=== PATIENT | female | born 1995 | race Caucasian/White ===

== ENCOUNTER 2017-03-01 01:34 | Emergency (ER) | payer BC, MEDICAID ==
[2017-03-01 01:36] VITALS: BMI 73.1
--- NOTE | 2017-03-01 02:46 | ED PDOC ---
Arrival/HPI <Randy Doyle - Last Filed: 03/01/17 04:06> - General Historian: Patient - History of Present Illness Time/Duration: Prior to Arrival Symptom Onset: Sudden Symptom Course: Unchanged Quality: Unable to Describe Severity Level: Mild Context: Home <KellyRuth - Last Filed: 03/01/17 18:51> - General Chief Complaint: Substance Abuse Time Seen by Provider: 03/01/17 02:28 - History of Present Illness Narrative History of Present Illness (Text): 03/01/17 02:43 21F w/PMH sig for morbid obesity s/p gastric sleeve surgery evaluated for substance abuse. Pt BIBA due to ingestion of Rice Krispie treat with some unidentified substance in it. Pt unable to remember what was ingested. Pt states she called EMS due to "feeling like I was falling". EMS report states pt reported marijuana in the Rice Krispie treat. Pt admits to feeling cold, dry throat, paresthesias (chronic). Denies N/V/F/C, shortness of breath, chest pain , ab pain, headache, vision changes, audio or visual hallucinations, suicidal ideation. PMH: Hx morbid obesity PSH: Gastric sleeve All: Amie Pimentel SH: Denies tobacco use, occasional ETOH use, denies illicit drug use 03/01/17 02:59 03/01/17 03:06 (Ruth Mendoza) Associated Symptoms (Text): 03/01/17 02:47 feeling cold (Ruth Mendoza) Past Medical History - Provider Review Nursing Documentation Reviewed: Yes - Infectious Disease Hx of Infectious Diseases: None - Tetanus Immunization Tetanus Immunization: Up to Date - Cardiac Hx Hypertension: Yes - Pulmonary Hx Asthma: Yes - Neurological Hx Neurological Disorder: Yes Other/Comment: AMS - HEENT Hx HEENT Disorder: No - Renal Hx Renal Disorder: No - Endocrine/Metabolic Hx Endocrine Disorders: No - Hematological/Oncological Hx Blood Disorders: No - Integumentary Hx Dermatological Disorder: No - Musculoskeletal/Rheumatological Hx Falls: Yes - Gastrointestinal Hx Gastrointestinal Disorders: Yes (obese) - Genitourinary/Gynecological Hx Urinary Tract Infection: Yes - Psychiatric Hx Anxiety: Yes Hx Depression: Yes Hx Substance Use: No - Surgical History Hx Gastric Bypass Surgery: Yes (gastric sleeve) - Anesthesia Hx Anesthesia Reactions: No Hx Malignant Hyperthermia: No - Suicidal Assessment Feels Threatened In Home Enviroment: No <Ruth Mendoza - Last Filed: 03/01/17 18:51> Family/Social History Family/Social History: No Known Family HX Smoking Status: Never Smoked Hx Alcohol Use: No Hx Substance Use: No <MendozaRuth - Last Filed: 03/01/17 18:51> Allergies/Home Meds <Randy Doyle - Last Filed: 03/01/17 04:06> <MendozaRuth - Last Filed: 03/01/17 18:51> Allergies/Adverse Reactions: Allergies metoclopramide [From Reglan] Allergy (Verified 03/01/17 01:53) DIZZINESS ondansetron [From Zofran (as hydrochloride)] Allergy (Verified 03/01/17 01:53) DIZZINESS Review of Systems - Physician Review All systems were reviewed & negative as marked: Yes - Review of Systems Systems not reviewed;Unavailable: Intoxicated Eyes: Normal. absent: Vision Changes ENT: Sore Throat Respiratory: Normal. absent: SOB Cardiovascular: Normal. absent: Chest Pain Gastrointestinal: Normal. absent: Abdominal Pain, Nausea, Vomiting Skin: Normal. absent: Rash Neurological: Normal. absent: Headache <MendozaRuth - Last Filed: 03/01/17 18:51> Physical Exam Vital Signs Reviewed: Yes Temperature: Afebrile Blood Pressure: Normal Pulse: Tachycardic Respiratory Rate: Normal Appearance: Positive for: Non-Toxic, Comfortable, Other (appears intoxicated) Pain Distress: None Mental Status: No: Alert and Oriented X 3 (AOx2) - Systems Exam Head: Present: Atraumatic, Normocephalic Pupils: Present: Sluggish. No: Pinpoint Extroacular Muscles: Present: EOMI Conjunctiva: Present: Normal. No: Injected Mouth: Present: Moist Mucous Membranes, Normal Tounge, Normal Teeth Nose (External): Present: Atraumatic Neck: Present: Normal Range of Motion Respiratory/Chest: Present: Clear to Auscultation, Good Air Exchange. No: Respiratory Distress, Accessory Muscle Use Cardiovascular: Present: Normal S1, S2, Tachycardic. No: Murmurs Abdomen: Present: Normal Bowel Sounds. No: Tenderness, Distention, Peritoneal Signs Upper Extremity: Present: Normal Inspection. No: Cyanosis, Edema Lower Extremity: Present: Normal Inspection. No: Edema Neurological: Present: GCS=15, CN II-XII Intact. No: Speech Normal (slow speech pattern) Skin: Present: Warm, Dry, Normal Color. No: Rashes Psychiatric: Present: Alert, Intoxicated, Lethargic. No: Oriented x 3, Normal Affect (affect flattened), Normal Mood, Anxious, Agitated, Depressed Mood, Suicidal Ideation, Homicidal Ideation, Hallucinations <Ruth Mendoza - Last Filed: 03/01/17 18:51> Vital Signs Temp Pulse Resp BP Pulse Ox 03/01/17 09:00 80 12 116/54 L 98 03/01/17 07:13 98.6 F 80 16 102/54 L 100 03/01/17 06:32 87 16 133/82 99 03/01/17 03:23 89 16 100 03/01/17 01:53 98.7 F 118 H 18 143/78 100 Medical Decision Making - Lab Interpretations I have reviewed the lab results: Yes <Randy Doyle - Last Filed: 03/01/17 04:06> - Lab Interpretations I have reviewed the lab results: Yes Interpretation: Abnormal lab values (hypokalemia) - EKG Interpretation Interpreted by ED Physician: Yes Type: 12 lead EKG <Ruth Mendoza - Last Filed: 03/01/17 18:51> ED Course and Treatment: 03/01/17 03:00 In agreement with resident note, which includes further HPI details. Patient was seen and evaluated with resident, came up with plan and treatment together. 21 year old female presents intoxicated and for ingestion of unidentified substance with Rice Krispie. (Randy Doyle) 03/01/17 02:50 Pt seen/evaluated, acting bizarrely in ED, will order urine drug screen, labs, imaging, EKG, and PES eval due to noted psych history. 03/01/17 07:00 Pt endorsed to oncoming attending, Dr. Giles, pending PES evaluation, pending final disposition. (Ruth Mendoza) - Lab Interpretations Lab Results: 03/01/17 03:00 03/01/17 03:00 Lab Results 03/01/17 04:35: Urine Opiates Screen Negative, Urine Methadone Screen Negative, Ur Barbiturates Screen Negative, Ur Phencyclidine Scrn Negative, Ur Amphetamines Screen Negative, U Benzodiazepines Scrn Negative, U Oth Cocaine Metabols Negative, U Cannabinoids Screen Positive H 03/01/17 03:00: Alcohol, Quantitative < 10 03/01/17 03:00: Sodium 142, Potassium 3.2 L, Chloride 105, Carbon Dioxide 25, Anion Gap 15, BUN 15, Creatinine 0.6 L, Est GFR ( Amer) > 60, Est GFR ( Non-Af Amer) > 60, Random Glucose 112 H, Calcium 9.5, Total Bilirubin 1.0, AST 18, ALT 24, Alkaline Phosphatase 62, Total Protein 7.2, Albumin 4.0, Globulin 3.2, Albumin/Globulin Ratio 1.3 03/01/17 03:00: WBC 8.4, RBC 4.44, Hgb 11.4 L, Hct 35.2 L, MCV 79.3 L, MCH 25.7 , MCHC 32.4, RDW 15.8 H, Plt Count 325, MPV 9.2, Gran % 74.0 H, Lymph % (Auto) 16.0 L, [place] % (Auto) 8.8 H, Eos % (Auto) 0.1 L, Baso % (Auto) 1.1, Gran # 6.19 , Lymph # 1.3, [place] # 0.7 H, Eos # 0.0, Baso # 0.09 - RAD Interpretation Radiology Orders: 03/01/17 04:57 CXR [CHEST PORTABLE] [RAD] Stat - EKG Interpretation EKG Interpretation (Text): 03/01/17 06:28 NSR at 84bpm (Ruth Mendoza) - Medication Orders Current Medication Orders: Discontinued Medications Potassium Chloride (K-Dur 20 Meq Er Tab) 20 meq PO STAT STA Stop: 03/01/17 04:08 Last Admin: 03/01/17 06:31 Dose: 20 meq - PA / [employer] OPERATOR / Resident Statement / has reviewed & agrees with the documentation as recorded. / has examined the patient and agrees with the treatment plan. - Scribe Statement The provider has reviewed the documentation as recorded by the Scribe <Randy Doyle - Last Filed: 03/01/17 04:06> <Ruth Mendoza - Last Filed: 03/01/17 18:51> - Scribe Statement Andria Acosta All medical record entries made by the Scribe were at my direction and personally dictated by me. I have reviewed the chart and agree that the record accurately reflects my personal performance of the history, physical exam, medical decision making, and the department course for this patient. I have also personally directed, reviewed, and agree with the discharge instructions and disposition. (Randy Doyle) Disposition/Present on Arrival <Randy Doyle - Last Filed: 03/01/17 04:06> - Present on Arrival Any Indicators Present on Arrival: No History of DVT/PE: No History of Uncontrolled Diabetes: No Urinary Catheter: No History of Decub. Ulcer: No History Surgical Site Infection Following: None - Disposition Have Diagnosis and Disposition been Completed?: Yes Disposition Time: 09:00 Patient Plan: Discharge <KellyWichita - Last Filed: 03/01/17 18:51> - Disposition Diagnosis: Substance abuse Disposition: HOME/ ROUTINE Condition: IMPROVED Additional Instructions: Leone, thank you for letting us take care of you today. Your provider was Dr. Giles and Dr. Doyle. You were treated for Substance use. The emergency medical care you received today was directed at your acute symptoms. If you were prescribed any medication, please fill it and take as directed. It may take several days for your symptoms to resolve. Return to the Emergency Department if your symptoms worsen, do not improve, or if you have any other problems. Please contact your doctor or call one of the physicians/clinics you have been referred to that are listed on the Patient Visit Information form that is included in your discharge packet. Bring any paperwork you were given at discharge with you along with any medications you are taking to your follow up visit. Our treatment cannot replace ongoing medical care by a primary care provider (PCP) outside of the emergency department. Thank you for allowing the [facility] team to be part of your care today. If you had an X-Ray or CT scan: A Radiologist will review the ED reading if any change in treatment is needed we will contact you. If you had a blood, urine, or wound culture: It will take several days for the results, if any change in treatment is needed we will contact you. If you had an STI test: It will take 48 hours for the results. Please call after 1 week if you have not heard back. Referrals: [facility] [Outside] - Follow up with primary [facility] at [facility] [place] [Outside] - Follow up with primary Forms: [employer] (Malay), WORK NOTE
[2017-03-01 03:25] LABS: HEMATOCRIT 35.2 % (36.0-48.0); MEAN CELL VOLUME 79.3 fl (80.0-105.0); MEAN CORPUSCULAR HEMOGLOBIN 25.7 pg (25.0-35.0); MEAN CORPUSCULAR HGB CONC 32.4 g/dl (31.0-37.0); WHITE BLOOD COUNT 8.4 10^3/ul (4.5-11.0)
[2017-03-01 03:26] LABS: BASO % 1.1 % (0.0-3.0); EOS % 0.1 % (1.5-5.0); GRAN # 6.19 (1.4-6.5); LYMPH # 1.3 (1.2-3.4); MEAN PLATELET VOLUME 9.2 fl (7.0-11.0); MONO # 0.7 (0.1-0.6); MONO % 8.8 % (1.0-6.0); RED CELL DISTRIBUTION WIDTH 15.8 % (11.5-14.5)
[2017-03-01 03:27] LABS: BASO # 0.09 K/mm3 (0.0-2.0)
[2017-03-01 03:53] LABS: ALB/GLOB RATIO 1.3 (1.1-1.8); ALKALINE PHOSPHATASE 62 U/L (38-126); ALT/SGPT 24 U/L (7-56); AST/SGOT 18 U/L (14-36); BLOOD UREA NITROGEN 15 mg/dL (7-21); CALCIUM 9.5 mg/dL (8.4-10.5); CARBON DIOXIDE 25 mmol/L (21-33); CHLORIDE 105 mmol/L (98-107); GFR AFRICAN-AMERICAN > 60; GLUCOSE,RANDOM 112 mg/dL (70-110); POTASSIUM 3.2 mmol/L (3.6-5.0); SODIUM 142 mmol/L (132-148); TOTAL PROTEIN 7.2 g/dL (5.8-8.3)
[2017-03-01] MEDS ORDERED: Potassium Chloride 20 mEq ER Tab PO STA ×2 (04:07→04:35)
--- NOTE | 2017-03-01 07:10 | ED PDOC ---
Physical Exam Vital Signs Reviewed: Yes Vital Signs Temp Pulse Resp BP Pulse Ox 03/01/17 06:32 87 16 133/82 99 03/01/17 03:23 89 16 100 03/01/17 01:53 98.7 F 118 H 18 143/78 100 Temperature: Afebrile Blood Pressure: Normal Pulse: Tachycardic Respiratory Rate: Normal Medical Decision Making ED Course and Treatment: 03/01/17 07:09 Patient endorsed to me by Dr. Doyle at 07:00, pending PES evaluation. Patient presented intoxicated after ingestion of unidentified substance in rice krispie. 03/01/17 09:00 Patient feels better. No SI or HI. Evaluated by PES with Dr. Noa Francois who agreed patient can be cleared by Psychiatry to go home. Patient is AAOx3. No slurred speech. No ataxia. - Lab Interpretations Lab Results: 03/01/17 03:00 03/01/17 03:00 Lab Results 03/01/17 04:35: Urine Opiates Screen Negative, Urine Methadone Screen Negative, Ur Barbiturates Screen Negative, Ur Phencyclidine Scrn Negative, Ur Amphetamines Screen Negative, U Benzodiazepines Scrn Negative, U Oth Cocaine Metabols Negative, U Cannabinoids Screen Positive H 03/01/17 03:00: Alcohol, Quantitative < 10 03/01/17 03:00: Sodium 142, Potassium 3.2 L, Chloride 105, Carbon Dioxide 25, Anion Gap 15, BUN 15, Creatinine 0.6 L, Est GFR ( Amer) > 60, Est GFR ( Non-Af Amer) > 60, Random Glucose 112 H, Calcium 9.5, Total Bilirubin 1.0, AST 18, ALT 24, Alkaline Phosphatase 62, Total Protein 7.2, Albumin 4.0, Globulin 3.2, Albumin/Globulin Ratio 1.3 03/01/17 03:00: WBC 8.4, RBC 4.44, Hgb 11.4 L, Hct 35.2 L, MCV 79.3 L, MCH 25.7 , MCHC 32.4, RDW 15.8 H, Plt Count 325, MPV 9.2, Gran % 74.0 H, Lymph % (Auto) 16.0 L, [place] % (Auto) 8.8 H, Eos % (Auto) 0.1 L, Baso % (Auto) 1.1, Gran # 6.19 , Lymph # 1.3, [place] # 0.7 H, Eos # 0.0, Baso # 0.09 - RAD Interpretation Radiology Orders: 03/01/17 04:57 CXR [CHEST PORTABLE] [RAD] Stat - Medication Orders Current Medication Orders: Discontinued Medications Potassium Chloride (K-Dur 20 Meq Er Tab) 20 meq PO STAT STA Stop: 03/01/17 04:08 Last Admin: 03/01/17 06:31 Dose: 20 meq - Scribe Statement The provider has reviewed the documentation as recorded by the Scribe Marily Garcia Provider Scribe Attestation: All medical record entries made by the Scribe were at my direction and personally dictated by me. I have reviewed the chart and agree that the record accurately reflects my personal performance of the history, physical exam, medical decision making, and the department course for this patient. I have also personally directed, reviewed, and agree with the discharge instructions and disposition. Disposition/Present on Arrival - Present on Arrival Any Indicators Present on Arrival: No History of DVT/PE: No History of Uncontrolled Diabetes: No Urinary Catheter: No History of Decub. Ulcer: No History Surgical Site Infection Following: None - Disposition Have Diagnosis and Disposition been Completed?: Yes Diagnosis: Substance abuse Disposition: HOME/ ROUTINE Disposition Time: 09:00 Patient Plan: Discharge Condition: IMPROVED Additional Instructions: Ms Leone, thank you for letting us take care of you today. Your provider was Dr. Giles and Dr. Doyle. You were treated for Substance use. The emergency medical care you received today was directed at your acute symptoms. If you were prescribed any medication, please fill it and take as directed. It may take several days for your symptoms to resolve. Return to the Emergency Department if your symptoms worsen, do not improve, or if you have any other problems. Please contact your doctor or call one of the physicians/clinics you have been referred to that are listed on the Patient Visit Information form that is included in your discharge packet. Bring any paperwork you were given at discharge with you along with any medications you are taking to your follow up visit. Our treatment cannot replace ongoing medical care by a primary care provider (PCP) outside of the emergency department. Thank you for allowing the [facility] team to be part of your care today. If you had an X-Ray or CT scan: A Radiologist will review the ED reading if any change in treatment is needed we will contact you. If you had a blood, urine, or wound culture: It will take several days for the results, if any change in treatment is needed we will contact you. If you had an STI test: It will take 48 hours for the results. Please call after 1 week if you have not heard back. Referrals: [facility] [Outside] - [place] up [place] [facility] [place] [facility] [place] - Follow up with primary Forms: [employer] (Romanian), WORK NOTE
[2017-03-01 07:15] VITALS: PULSE 80; TEMP 98.6
[2017-03-01 09:01] VITALS: BP 116/54; RESP 12; O2SAT 98
--- NOTE | 2017-03-01 10:22 | RAD ---
HISTORY: Altered mental status COMPARISON: 05/27/2015 FINDINGS: LUNGS: No active pulmonary disease. PLEURA: No significant pleural effusion identified, no pneumothorax apparent. CARDIOVASCULAR: Normal. OSSEOUS STRUCTURES: No significant abnormalities. VISUALIZED UPPER ABDOMEN: Normal. OTHER FINDINGS: None. IMPRESSION: No active disease. Please note: No preliminary report/ innterpretation of this examination provided by emergency department personnel.
--- NOTE | 2017-03-01 23:01 | CARD ---
APPROVED REPORT EKG Measurement Heart [id number] <Conclusion> Normal sinus rhythm Normal ECG
== END 2017-03-01 09:00 | disposition home or self-care (01) ==
LOC: ED 01:34
DX: F19.10 Other psychoactive substance abuse, uncomplicated (principal); Z98.84 Bariatric surgery status